=== PATIENT | female | born 1980 | race Two or more races ===

== ENCOUNTER 2020-05-18 19:27 | Emergency (ER) | payer MEDICAID, OTHER ==
[~2020-05-18] VITALS: Ht 144.8 cm; Wt 59.0 kg
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
[2020-05-18] MEDS ORDERED: IBUPROFEN 600 MG TABLET PO ONE (20:30)
[2020-05-18] MEDS ORDERED: IBUPROFEN 600 MG TABLET ONE (20:37)
--- NOTE | 2020-05-18 22:01 | NUR ---
PT WAS PROVIDED W/ WRIST SPLINT
[2020-05-18 23:05] VITALS: BP 141/79
--- NOTE | 2020-05-18 23:05 | NUR ---
Patient discharged to home in stable condition. Written and verbal after care instructions given. Patient verbalizes understanding of instruction.Pt ambulatory with a steady gait
== END 2020-05-18 23:06 | disposition home or self-care (01) ==
LOC: ER 19:29
DX: S63.591A Other specified sprain of right wrist, initial encounter (principal); S29.012A Strain of muscle and tendon of back wall of thorax, initial encounter; V49.49XA Driver injured in collision with other motor vehicles in traffic accident, initial encounter; Y93.89 Activity, other specified; Y92.488 Other paved roadways as the place of occurrence of the external cause; Y99.8 Other external cause status
CPT/HCPCS: 71100-TC; 73110; 84703-TC